=== PATIENT | female | born 1990 | race Caucasian/White ===

== ENCOUNTER → 2019-10-13 | Day surgery (SDC) | payer OTHER ==
[~2019-10-13] MED LIST: IBU400 MG PO; ZITHROMAX500 MG PO
== END | disposition home or self-care (01) ==
LOC: CIR.AMB 07:09
DX: O02.1 Missed abortion (principal)

== ENCOUNTER 2020-05-17 19:00 | Inpatient (IN) | payer OTHER ==
[~2020-05-17] VITALS: Ht 121.9 cm; Wt 5.0 kg
[2020-05-19] MEDS ORDERED: IBUPROFEN800 MG PO (07:53)
[2020-05-19] MEDS ORDERED: DOCUSATE SODIU100 MG PO (07:53)
[2020-05-19] MEDS ORDERED: ZITHROMAX500 MG PO (07:53)
[2020-05-19] MEDS ORDERED: SIMETHICONE125 M1 PO (07:53)
== END 2020-05-19 10:26 | disposition home or self-care (01) | DRG 817 ==
LOC: CIR.AMB 19:00 → O/R 21:00 → CIR.AMB 05-18 09:16 → OB/GYN 05-18 09:16 → O/R 05-19 10:26
PROVIDERS: ADMIT Obstetrics & Gynecology; ATTEND Obstetrics & Gynecology
PROC: 10D24ZZ Extraction of Products of Conception, Ectopic, Percutaneous Endoscopic Approach (ICD-10-PCS; principal; 2020-05-17 17:15)
DX: O00.80 Other ectopic pregnancy without intrauterine pregnancy (principal); K66.1 Hemoperitoneum; Z20.828 Contact with and (suspected) exposure to other viral communicable diseases